=== PATIENT | female | born 1995 | race American Indian/Alaskan Native ===

== ENCOUNTER 2022-05-01 12:13 | Emergency (ER) | payer MEDICAID ==
[2022-05-01] MEDS ORDERED: ONDANSETRON 4 MG ODT TAB PO ONE (13:25)
[2022-05-01 13:26] VITALS: BP 116/80
--- NOTE | 2022-05-01 13:31 | Event Note ---
ED Screening Note Date of service: 05/01/22 Time: 13:27 ED Screening Note: This initial assessment/diagnostic orders/clinical plan/treatment(s) is/are subject to change based on patients health status, clinical progression and re- assessment by fellow clinical providers in the ED. Further treatment and workup at subsequent clinical providers discretion. Patient/guardian urged not to elope from the ED as their condition may be serious if not clinically assessed and managed. with Abd pain and vag bleed x 2 days. +preg test at home x 3 - LMP 03/11. No acute distress. Initial orders include: My Active Orders 05/01/22 13:25 Basic Metabolic Panel Stat Complete Blood Count Auto Diff Stat HCG,Quantitative Stat Urinalysis Complete Stat 05/01/22 13:26 ABO/RH Type Stat
[2022-05-01 14:24] LABS: Basophils # (Auto) 0.1 K/mm3 (0.0-0.1); Eosinophils # (Auto) 0.2 K/mm3 (0.0-0.4); Eosinophils % (Auto) 2.6 % (0.0-4.3); Hematocrit 42.2 % (30.3-42.9); Hemoglobin 13.8 gm/dl (10.1-14.3); Lymphocytes # (Auto) 2.5 K/mm3 (1.2-5.4); Lymphocytes % (Auto) 38.7 % (13.4-35.0); Mean Corpuscular HGB Conc 33 % (30-34); Mean Corpuscular Volume 90 fl (79-97); Monocytes # (Auto) 0.4 K/mm3 (0.0-0.8); Monocytes % (Auto) 6.6 % (0.0-7.3); Platelet Count 252 K/mm3 (140-440); Red Blood Count 4.71 M/mm3 (3.65-5.03); Red Cell Distribution Width 14.8 % (13.2-15.2)
--- NOTE | 2022-05-01 14:40 | Emergency Department Report ---
ED Female HPI - General Chief complaint: Abdominal Pain Stated complaint: VOMITTING Time Seen by Provider: 05/01/22 14:31 Source: patient Mode of arrival: Ambulatory Limitations: No Limitations - History of Present Illness Initial comments: Patient is a 26-year-old female that comes to the emergency room stating that she took 3 test at home that were positive. And then she developed today some vaginal bleeding. Last menstrual period March 11 to . 2 para 1. Patient has not seen [facility]. She describes the bleeding as light. She denies any pain. Patient denies dysuria, abdominal pain, back pain or vaginal discharge. Patient is ambulatory, nontoxic toxic and [id number] on arrival MD Complaint: vaginal bleeding -: Gradual, days(s) Quality: cramping Consistency: constant Improves with: none Worsens with: none Are you Now?: Yes Associated Symptoms: denies other symptoms, vaginal bleeding. denies: vaginal discharge, abdominal pain, nausea/vomiting, fever/chills, headaches, loss of appetite, dysuria, hematuria, rash, seizure, shortness of breath, syncope, weakness - Related Data Sexually active: Yes : 2 Para: 1 Allergies Allergy/AdvReac Type Severity Reaction Status Date / Time No Known Allergies Allergy Verified 05/01/22 13:26 ED Review of Systems ROS: Stated complaint: VOMITTING Other details as noted in HPI Comment: All other systems reviewed and negative ED Past Medical Hx - Past Medical History Previous Medical History?: No - Surgical History Past Surgical History?: No - Family History Family history: no significant - Social History Smoking Status: Never Smoker Substance Use Type: None ED Physical Exam - General Limitations: No Limitations General appearance: alert, in no apparent distress - Head Head exam: Present: atraumatic, normocephalic - Eye Eye exam: Present: normal appearance - ENT ENT exam: Present: mucous membranes moist - Neck Neck exam: Present: normal inspection - Respiratory Respiratory exam: Present: normal lung sounds bilaterally. Absent: respiratory distress - Cardiovascular Cardiovascular Exam: Present: regular rate, normal rhythm. Absent: systolic murmur, diastolic murmur, rubs, gallop - GI/Abdominal GI/Abdominal exam: Present: soft, normal bowel sounds. Absent: distended, tenderness, guarding, rebound, rigid - Extremities Exam Extremities exam: Present: normal inspection - Back Exam Back exam: Present: normal inspection - Neurological Exam Neurological exam: Present: alert, oriented X3 - Psychiatric Psychiatric exam: Present: normal affect, normal mood - Skin Skin exam: Present: warm, dry, intact, normal color. Absent: rash ED Course Vital Signs 05/01/22 13:20 Temperature 98.6 F Pulse Rate 76 Respiratory 16 Rate Blood Pressure 116/80 [Left] O2 Sat by Pulse 100 Oximetry ED Medical Decision Making - Lab Data Result diagrams: 05/01/22 13:50 05/01/22 13:50 - Radiology Data Radiology results: report reviewed, image reviewed No IUP, see report - Medical Decision Making Lab Results 05/01/22 05/01/22 05/01/22 Range/Units 13:50 13:50 13:50 WBC 6.3 (4.5-11.0) K/mm3 RBC 4.71 (3.65-5.03) M/mm3 Hgb 13.8 (10.1-14.3) gm/dl Hct 42.2 (30.3-42.9) % MCV 90 (79-97) fl MCH 29 (28-32) pg MCHC 33 (30-34) % RDW 14.8 (13.2-15.2) % Plt Count 252 (140-440) K/mm3 Lymph % (Auto) 38.7 H (13.4-35.0) % [place] % (Auto) 6.6 (0.0-7.3) % Eos % (Auto) 2.6 (0.0-4.3) % Baso % (Auto) 1.0 (0.0-1.8) % Lymph # (Auto) 2.5 (1.2-5.4) K/mm3 [place] # (Auto) 0.4 (0.0-0.8) K/mm3 Eos # (Auto) 0.2 (0.0-0.4) K/mm3 Baso # (Auto) 0.1 (0.0-0.1) K/mm3 Seg Neutrophils % 51.1 (40.0-70.0) % Seg Neutrophils # 3.2 (1.8-7.7) K/mm3 Sodium 143 (137-145) mmol/L Potassium 3.9 (3.6-5.0) mmol/L Chloride 106.7 (98-107) mmol/L Carbon Dioxide 23 (22-30) mmol/L Anion Gap 17 mmol/L BUN 8 (7-17) mg/dL Creatinine 0.7 (0.6-1.2) mg/dL Estimated GFR > 60 ml/min BUN/Creatinine Ratio 11 % Glucose 80 (65-100) mg/dL Calcium 10.3 H (8.4-10.2) mg/dL HCG, Quant < 1 (0-4) mIU/mL Blood Type Ord Rhogam Gestat Weeks WEEKS 05/01/22 Range/Units 13:50 WBC (4.5-11.0) K/mm3 RBC (3.65-5.03) M/mm3 Hgb (10.1-14.3) gm/dl Hct (30.3-42.9) % MCV (79-97) fl MCH (28-32) pg MCHC (30-34) % RDW (13.2-15.2) % Plt Count (140-440) K/mm3 Lymph % (Auto) (13.4-35.0) % [place] % (Auto) (0.0-7.3) % Eos % (Auto) (0.0-4.3) % Baso % (Auto) (0.0-1.8) % Lymph # (Auto) (1.2-5.4) K/mm3 [place] # (Auto) (0.0-0.8) K/mm3 Eos # (Auto) (0.0-0.4) K/mm3 Baso # (Auto) (0.0-0.1) K/mm3 Seg Neutrophils % (40.0-70.0) % Seg Neutrophils # (1.8-7.7) K/mm3 Sodium (137-145) mmol/L Potassium (3.6-5.0) mmol/L Chloride (98-107) mmol/L Carbon Dioxide (22-30) mmol/L Anion Gap mmol/L BUN (7-17) mg/dL Creatinine (0.6-1.2) mg/dL Estimated GFR ml/min BUN/Creatinine Ratio % Glucose (65-100) mg/dL Calcium (8.4-10.2) mg/dL HCG, Quant (0-4) mIU/mL Blood Type AB POSITIVE Ord Rhogam Gestat Weeks Rh pos WEEKS Vital Signs 05/01/22 13:20 Temperature 98.6 F Pulse Rate 76 Respiratory 16 Rate Blood Pressure 116/80 [Left] O2 Sat by Pulse 100 Oximetry hCG negative Rh+ Labs noted Patient has yet to give urine, she needs to leave to get her other child so we do not have a UA on her. Ultrasound noted. I discussed with patient's the findings of her lab work. I told her that her count does not indicate that she is however, she could have been and have miscarried. However, it seems unlikely. It seems that she would have some hCG detectable yet. Patient is being discharged home with discharge plan of care including diet, activity, medications and follow-up. She verbalizes understanding of the need to follow-up with [facility] in 48 hours for a recheck. On discharge patient is ambulatory, not ill nontoxic and in no acute distress. - Differential Diagnosis Rule out /AB/ectopic Critical care attestation.: If time is entered above; I have spent that time in minutes in the direct care of this critically ill patient, excluding procedure time. ED Disposition Clinical Impression: Ovarian cyst, test negative, Vaginal bleeding Disposition: 01 HOME / SELF CARE / HOMELESS Is pt being admited?: No Does the pt Need Aspirin: No Condition: Stable Instructions: Ovarian Cyst, [id number], Abdominal Pain (ED) Additional Instructions: OVER THE COUNTER MOTRIN OR TYLENOL FOR PAIN FOLLOW UP WITH OB REFERRAL BELOW WARM COMPRESSES MAY HELP WITH PAIN Referrals: MARIS YU MD [Staff Physician] - 3-5 Days Forms: Work/School Release Form(ED) Time of Disposition: 16:26
[2022-05-01 14:43] LABS: Calcium 10.3 mg/dL (8.4-10.2); Hemolysis Index 4
[2022-05-01 14:54] LABS: BUN/Creatinine Ratio 11; Blood Urea Nitrogen 8 mg/dL (7-17)
--- NOTE | 2022-05-01 16:01 | Ultrasound Report ---
[facility] OBSTETR[facility] ULTRASOUND HISTORY: Vaginal bleeding during COMPARISON: None. TECHNIQUE: Routine transabdominal OB ultrasound performed. FINDINGS: Uterus: Normal size and contour measuring 8 x 4 x 5 cm. Gestational Sac: Not seen Yolk Sac: Not seen Fetus/Embryo: Not seen Endometrium: 0.8 cm. Ovaries: The right ovary is enlarged measuring 5.6 x 4.7 x 5.5 cm and contains a complex 5 cm cyst wi th multiple thin internal septations. The left ovary is unremarkable measuring 4.2 x 2.1 x 3.1 cm. Additional findings: None. IMPRESSION No intrauterine is visualized. Complex 5 cm right ovarian cystic lesion. These findings may represent spontaneous . Please note that a ectopic is not exclud ed at this time. However, the cystic lesion in the right adnexa has the appearance of a complicated o varian cyst and not an ectopic. Please correlate with the patient's clinical presentation and quantit ative beta hCG levels. Close interval follow-up should be considered. Signer Name: Thom Layton Jr, MD Signed: 05/01/2022 3:57 PM Workstation Name: [id number]
== END 2022-05-01 17:15 | disposition home or self-care (01) ==
LOC: ED 12:13
DX: N83.209 Unspecified ovarian cyst, unspecified side (principal); Z32.02 Encounter for pregnancy test, result negative; N93.9 Abnormal uterine and vaginal bleeding, unspecified
CPT/HCPCS: 36415; 76801; 76856; 80048; 84702; 85025; 86900; 86901; 99284; J3490; Q0162